=== PATIENT | male | born 1980 | race Caucasian/White ===

== ENCOUNTER 2018-09-29 11:53 | Emergency (ER) | payer OTHER ==
[~2018-09-29] VITALS: Ht 170.2 cm; Wt 88.0 kg
[2018-09-29 12:05] VITALS: Ht 170.2 cm; Wt 88.0 kg
[2018-09-29 14:25] VITALS: BP 135/80
== END 2018-09-29 14:25 | disposition home or self-care (01) ==
LOC: ED 11:53
DX: S01.21XA Laceration without foreign body of nose, initial encounter (principal); F17.210 Nicotine dependence, cigarettes, uncomplicated; Z98.890 Other specified postprocedural states; W22.8XXA Striking against or struck by other objects, initial encounter; Y93.89 Activity, other specified; Y92.89 Other specified places as the place of occurrence of the external cause; Y99.8 Other external cause status
CPT/HCPCS: 90715; J2001

== ENCOUNTER 2018-10-01 11:24 | Emergency (ER) | payer OTHER ==
[~2018-10-01] VITALS: Ht 170.2 cm; Wt 90.7 kg
[2018-10-01 12:23] VITALS: BP 120/79; Ht 170.2 cm; Wt 90.7 kg
== END 2018-10-01 15:01 | disposition home or self-care (01) ==
LOC: ED 11:24
DX: S01.21XD Laceration without foreign body of nose, subsequent encounter (principal); W22.8XXD Striking against or struck by other objects, subsequent encounter

== ENCOUNTER 2018-10-06 09:49 | Emergency (ER) | payer OTHER ==
[~2018-10-06] VITALS: Ht 170.2 cm; Wt 91.6 kg
[2018-10-06 09:56] VITALS: BP 134/76; Ht 170.2 cm; Wt 91.6 kg
== END 2018-10-06 10:46 | disposition home or self-care (01) ==
LOC: ED 09:49
DX: S01.21XD Laceration without foreign body of nose, subsequent encounter (principal); X58.XXXD Exposure to other specified factors, subsequent encounter

== ENCOUNTER 2018-10-08 07:57 | Emergency (ER) | payer OTHER ==
[~2018-10-08] VITALS: Ht 170.2 cm; Wt 90.7 kg
[2018-10-08 08:04] VITALS: BP 130/75
== END 2018-10-08 08:42 | disposition home or self-care (01) ==
LOC: ED 07:57
DX: S01.21XD Laceration without foreign body of nose, subsequent encounter (principal); X58.XXXD Exposure to other specified factors, subsequent encounter